=== PATIENT | male | born 1955 | race Caucasian/White ===

== ENCOUNTER 2021-03-08 08:35 | Day surgery (SDC) | payer MEDICARE, BC ==
[2021-03-05 11:18] VITALS: BMI 24.7
[~2021-03-08 08:35] MED LIST: LACTATED RINGERS 1,000 ML IV SCH
[2021-03-08 09:23] VITALS: TEMP 98.3
[2021-03-08] MEDS ORDERED: PROPOFOL 10 MG/ML 20 ML VIAL IV ONE (10:09)
[2021-03-08] MEDS ORDERED: LIDOCAINE 1% INJ 10MG/ML (20 ML MDV) ONE (10:09)
--- NOTE | 2021-03-08 10:11 | P.GSHP ---
History of Present Illness H&P Date: 03/08/21 Chief Complaint: Screening colonoscopy This is a 65-year-old male who presents today for screening colonoscopy patient denies any significant GI complaints. Past Medical History Past Medical History: No Reported History Additional Past Medical History / Comment(s): hx herniated discs with back surgery. History of Any Multi-Drug Resistant Organisms: None Reported Past Surgical History: Back Surgery Additional Past Surgical History / Comment(s): back surgery 2019(L-3, L-4), colonoscopy Past Anesthesia/Blood Transfusion Reactions: No Reported Reaction, Motion Sickness Past Psychological History: No Psychological Hx Reported Smoking Status: Never smoker Past Alcohol Use History: Occasional Past Drug Use History: None Reported - Past Family History Mother Family Medical History: Cancer Additional Family Medical History / Comment(s): female cancer Medications and Allergies Home Medications Medication Instructions Recorded Confirmed Type Multivitamins, Thera [Multivitamin 1 tab PO DAILY 03/05/21 03/05/21 History (formulary)] [place]-3 Fatty Acids/Fish Oil [Fish 1 each PO DAILY 03/05/21 03/08/21 History Oil 1,000 mg Softgel] Turmeric (Unknown Dose) 1 dose PO DAILY 03/05/21 03/08/21 History Vitamin D (Unknown Dose) 1 cap PO DAILY 03/05/21 03/08/21 History Allergies Allergy/AdvReac Type Severity Reaction Status Date / Time No Known Allergies Allergy Verified 03/08/21 09:11 Surgical - Exam Vital Signs Temp Pulse Resp BP Pulse Ox 98.3 F 93 18 138/81 96 03/08/21 09:17 03/08/21 09:17 03/08/21 09:17 03/08/21 09:17 03/08/21 09:17 - General well developed, well nourished, no distress - Eyes PERRL - ENT normal pinna - Neck no masses - Respiratory normal expansion - Cardiovascular Rhythm: regular - Abdomen Abdomen: soft, non tender Assessment and Plan Assessment: We will perform screening colonoscopy.
--- NOTE | 2021-03-08 10:22 | P.OP ---
Date of Procedure: 03/08/21 Preoperative Diagnosis: Screening colonoscopy Postoperative Diagnosis: Normal colonoscopy Procedure(s) Performed: Colonoscopy Anesthesia: MAC Surgeon: Edgar Arteaga Pathology: none sent Condition: stable Disposition: PACU Description of Procedure: Normal colonoscopy
[2021-03-08 10:52] VITALS: BP 115/77; PULSE 84; RESP 20
== END 2021-03-08 11:05 | disposition home or self-care (01) ==
LOC: ORWHC2ENDO 08:35
PROVIDERS: ATTEND Surgery
DX: Z12.11 Encounter for screening for malignant neoplasm of colon (principal)
CPT/HCPCS: J2001; J2704; G0121